=== PATIENT | female | born 1960 | race Caucasian/White ===

== ENCOUNTER → 2021-07-01 | Outpatient (CLI) | payer BC, SELFPAY ==
[2021-07-08 12:27] LABS: HPV APTIMA, High Risk Negative (Negative)
== END | disposition home or self-care (01) ==
PROVIDERS: PCP Family Medicine; Visit Provider Obstetrics & Gynecology
DX: Z01.419 Encounter for gynecological examination (general) (routine) without abnormal findings (principal)
CPT/HCPCS: 87624; 88175; G0145

== ENCOUNTER → 2022-02-26 | Outpatient (CLI) | payer BC, SELFPAY ==
--- NOTE | 2022-02-26 10:37 | MRI_ITS ---
STUDY: MRI BRAIN WITH AND WITHOUT CONTRAST REASON FOR EXAM: Female, 61 years old. BILAT HEARING LOSS, CRANIAL NERVE DISORDER TECHNIQUE: Standardized multiplanar fat and water weighted pulse sequences were obtained. IV 15ml Dotarem was administered for the contrast portion of the examination. COMPARISON: None. FINDINGS: Normal size of the ventricles and extra-axial spaces for the patient''s age. Normal white matter tracts of the supratentorial brain. Normal bilateral basal ganglia. Normal thalami. There is no extra-axial fluid accumulation. Normal flow voids within the major intracranial circulation suggesting patency by spin echo criteria. Normal venous enhancement. There is no enhancing intra-axial or extra-axial abnormality. Empty sella deformity. Normal infundibular stalk, optic chiasm and hypothalamus. Normal tectal plate and pineal gland. Normal midbrain, isabel and medulla. Normal cerebellum. Normal basal cisterns. Normal bilateral temporal bones. Normal bilateral internal auditory canals. No demonstrated orbital abnormality, within the constraints of a routine brain study. Minor mucosal thickening in the left maxillary and bilateral ethmoid sinuses Normal calvarium and skull base. Normal visualized soft tissue structures. Normal visualized upper cervical spine. MRI/Brain W/WO Contrast IMPRESSION: Empty sella deformity of uncertain clinical significance. No other significant abnormalities. No evidence for acoustic or vestibular swan normal Electronically Signed: Iraj Hoover MD at 16:31 EDT ,
[2022-02-26 11:06] LABS: CREATININE FINGERSTICK < 0.9 mg/dL (0.55-1.02); EGFR FINGERSTICK > 60.0000 mL/min (>60)
== END | disposition home or self-care (01) ==
PROVIDERS: PCP Family Medicine; Referring Provider Otolaryngology Otolaryngic Allergy; Visit Provider Otolaryngology Otolaryngic Allergy
DX: H91.93 Unspecified hearing loss, bilateral (principal); G52.9 Cranial nerve disorder, unspecified
CPT/HCPCS: 70553; A9575

== ENCOUNTER 2022-12-10 08:34 | Day surgery (SDC) | payer BC, SELFPAY ==
[2022-12-10] VITALS (7 sets, daily range): BP systolic 88–125; BP diastolic 56–67; PULSE 63–68; RESP 16–18; TEMP 36.6–36.9; O2SAT 95–98; BMI 32.8
--- NOTE | 2022-12-10 08:49 | PCM.HP.BLA ---
History and Physical Date of Admission: 12/10/22 62 F who presents to the office today to establish with GI for heartburn, pain with swallowing.? Symptoms began about a year ago.? Her mother has a history of esophageal issues including candidiasis and strictures.? Patient notes intermittent heartburn, can be triggered by certain foods so she watches what she eats.? She takes omeprazole as needed, she was not sure if she should take something on a regular basis.? She does get pain in the esophagus when swallowing.? Food has not gotten stuck.? No nausea, vomiting.? No early satiety.? Weight is stable.? No abdominal pain.? She does not have any bowel complaints.? No diarrhea, constipation, melena, hematochezia. Past medical history: Anxiety, depression, hearing loss, hypertension Past surgical history: Cholecystectomy ROS Const Constitutional: No fatigue ENT ENT: Positive for difficulty swallowing Gastro GI: Positive for bloating, difficulty swallowing, excessive flatus, nausea/dyspepsia and vomiting; No abdominal pain, belching, change in bowel habits, change in stool character, coffee ground emesis, constipation, cramping, diarrhea, heartburn, feeling full early, incontinent of stools, Vomiting blood/hematemesis, Blood in stool, loose stools, Black,tarry stools, pain with swallowing or other Musc Musculoskeletal: Positive for back pain, numbness and tingling; No joint pain Skin Skin: No yellowing of the eye or itchy eyes Neuro Neurology: Positive for numbness and tingling Psych Psychiatric: Positive for anxiety and No depression Endo Endocrine: No fatigue Aller/Imm Allergy/Immunologic: No itchy eyes Jesse/Lymp Hematologic/Lymphatic: No easy bleeding or easy bruising Exam Const General: cooperative and comfortable Orientation: alert, awake and oriented x3 HENMT Head: normal to inspection Neck Neck: normal visual inspection Resp Effort & Inspection: normal respiratory effort GI Inspection: normal to inspection Palpation: soft, no hepatosplenomegaly, no masses and nontender Skin General: no rashes or lesions noted Quality Reporting Tobacco Screening ([facility] 138) Smoking Status: Current some day smoker Assessment and Plan Assessment and Plan (1) Difficulty swallowing: ?Status:?Chronic ?Plan: 62-year-old female with approximately 1 year history of heartburn and esophageal pain with swallowing.? EGD is scheduled to evaluate for esophagitis, strictures, Townsend's, or other.? Follow-up in office 2 weeks later to discuss biopsy results.? Prescription for pantoprazole 40 mg daily. (2) Heartburn: ?Status:?Chronic ?Plan: See above ? ? ? Medications: New pantoprazole 40 mg? PO DAILY 90 tabs 0RF ? ? there have been no changes since the patient was seen and office. This is an updated history and physical.
--- NOTE | 2022-12-10 09:00 | EGD_PTH ---
PATIENT: LOKESH DE LEON LOC: EN U#:[id number] AGE/SX: 62/F ROOM: RE12/10/[address]: Dr. Raul Salgado DO : 1960 BED: DIS: 12/10/2022 SPEC #: [id number] RECD: 12/10/22 12:45 STATUS: MAGGIE REQ #: [id number] SOLO: 12/10/22 09:[address]: Raul Salgado DEPT: SURGICAL PATHOLOGY RECD BY: Kayla Alejandro ENTERED: 12/10/22 13:29 SP TYPE: EGD BIOPSY OT DR: Dr. Twin Walker MD Tissues: Esophagus, NOS Procedures: Special Stain Group II Surgery Specimen Level IV Alcian Blue/PAS (control) HEADER [place] [place] DIAGNOSIS: Difficulty swallowing TISSUE SUBMITTED: Distal esophagus MICROSCOPIC DIAGNOSIS Distal esophagus, biopsy: Gastroesophageal junctional mucosa with chronic inflammation. Focal changes of reflux. No evidence of goblet cell metaplasia. See comment. AM:lisette 12/11/2022 COMMENT Alcian blue/PAS stain with matched control supports the above diagnosis. MICROSCOPIC DESCRIPTION Slides are reviewed. GROSS DESCRIPTION Received in fixative is one container labeled with the patient's name and designated distal esophagus. The specimen consists of multiple irregular fragments of light abad soft tissue that in aggregate measure 1.0 x 0.5 x 0.1 cm. The specimen is totally submitted in one cassette. / SJ:lisette 12/10/2022 TC:3 CPT: 72833, 39948
[2022-12-10] MEDS: Lactated Ringers 1,000 ML 15 ML IV (09:03)
--- NOTE | 2022-12-10 09:55 | OP.CCLET_ITS ---
12/10/2022 Twin Walker Re : Upper GI endoscopy procedure for Romina Littlejohn Dear Aaron This procedure was performed on November. My impressions and recommendations are as follows: Impressions : - Moderate Schatzki ring. Biopsied. - Possible small varices - Medium-sized hiatal hernia. - Erythematous mucosa in the stomach. - Normal second portion of the duodenum. Biopsied. Recommendations : - Discharge patient to home. - Resume regular diet. - Continue present medications. - Ultrasound and FibroScan of the liver My findings are described in the full procedure note, which is enclosed. If I can be of further assistance, please feel free to contact me at . Sincerely, Raul Salgado, 12/10/2022 9:54:53 AM This report has been signed electronically.
--- NOTE | 2022-12-10 09:55 | OP.EGD_ITS ---
Patient Name: Romina Littlejohn Procedure Date: 12/10/2022 9:29 AM Date of : 1960 Age: 62 Procedure: Upper GI endoscopy Indications: Dysphagia, Heartburn Providers: Raul Salgado DO Referring MD: Raul Salgado DO Medicines: Monitored Anesthesia Care Patient Profile: This is a 62 year old female. Refer to note in patient chart for documentation of history and physical. Patient has symptoms of dysphagia with solids. Complications: No immediate complications. Procedure: Pre-Anesthesia Assessment: - Prior to the procedure, a History and Physical was performed, and patient medications and allergies were reviewed. The patient is competent. The risks and benefits of the procedure and the sedation options and risks were discussed with the patient. All questions were answered and informed consent was obtained. Patient identification and proposed procedure were verified by the physician in the pre-procedure area. Mental Status Examination: alert and oriented. Airway Examination: normal oropharyngeal airway and neck mobility. Respiratory Examination: clear to auscultation. CV Examination: normal. Prophylactic Antibiotics: The patient does not require prophylactic antibiotics. Prior Anticoagulants: The patient has taken no previous anticoagulant or antiplatelet agents. ASA Grade Assessment: II - A patient with mild systemic disease. After reviewing the risks and benefits, the patient was deemed in satisfactory condition to undergo the procedure. The anesthesia plan was to use monitored anesthesia care (MAC). Immediately prior to administration of medications, the patient was re-assessed for adequacy to receive sedatives. The heart rate, respiratory rate, oxygen saturations, blood pressure, adequacy of pulmonary ventilation, and response to care were monitored throughout the procedure. The physical status of the patient was re-assessed after the procedure. After obtaining informed consent, the endoscope was passed under direct vision. Throughout the procedure, the patient's blood pressure, pulse, and oxygen saturations were monitored continuously. The gastroscope was introduced through the mouth, and advanced to the second part of duodenum. The upper GI endoscopy was accomplished without difficulty. The patient tolerated the procedure well. Scope In: 9:40:01 AM Scope Out: 9:46:18 AM Total Procedure Duration Time 0 hours 6 minutes 17 seconds Findings: A moderate Schatzki ring was found at the gastroesophageal junction. Biopsies were taken with a cold forceps for histology. Verification of patient identification for the specimen was done. Estimated blood loss was minimal. A medium-sized hiatal hernia was present. Patchy mildly erythematous mucosa without bleeding was found in the stomach. The second portion of the duodenum was normal. Biopsies were taken with a cold forceps for histology. Verification of patient identification for the specimen was done. Estimated blood loss was minimal. Impression: - Moderate Schatzki ring. Biopsied. - Possible small varices - Medium-sized hiatal hernia. - Erythematous mucosa in the stomach. - Normal second portion of the duodenum. Biopsied. Recommendation: - Discharge patient to home. - Resume regular diet. - Continue present medications. - Ultrasound and FibroScan of the liver Procedure Code(s): --- Professional --- 28432, Esophagogastroduodenoscopy, flexible, transoral; with biopsy, single or multiple CPT copyright 2017 [employer] [place] [employer]. All rights reserved. The codes documented in this report are preliminary and upon income tax consultant review may be revised to meet current compliance requirements. Raul Salgado DO 12/10/2022 9:54:53 AM This report has been signed electronically. Number of Addenda: 0 Note Initiated On: 12/10/2022 9:29 AM
== END 2022-12-10 10:51 | disposition home or self-care (01) ==
LOC: EN 08:35 → AC 08:38
PROVIDERS: PCP Family Medicine; Referring Provider Family Medicine; Visit Provider Internal Medicine Gastroenterology
PROC: 0DJ08ZZ Inspection of Upper Intestinal Tract, Via Natural or Artificial Opening Endoscopic (ICD-10-PCS; CPT 43235; principal; 2022-12-10 08:55)
DX: K21.00 Gastro-esophageal reflux disease with esophagitis, without bleeding (principal); K44.9 Diaphragmatic hernia without obstruction or gangrene; F17.200 Nicotine dependence, unspecified, uncomplicated; I10 Essential (primary) hypertension; K22.2 Esophageal obstruction; Z79.899 Other long term (current) drug therapy; Z90.49 Acquired absence of other specified parts of digestive tract
CPT/HCPCS: 43239; 88305; 88313; J7120

== ENCOUNTER → 2022-12-21 | Outpatient (CLI) | payer BC, SELFPAY ==
--- NOTE | 2022-12-21 09:59 | US_ITS ---
STUDY: ABDOMINAL ULTRASOUND - ELASTOGRAPHY REASON FOR VISIT: Female, 62 years old. JUNIOR TECHNIQUE: Liver stiffness measurements were obtained on a [employer] RS 85 ultrasound machine using a CA 1-7 probe following the SRU guidelines. 3 measurements were obtained using a 2-D-SWE method. TheIQR/M was 17 % suggesting a quality data set. TECHNICAL QUALITY: Adequate. COMPARISON: None. FINDINGS: Liver: There is no demonstrated mass lesion. Median liver stiffness measured 8.1 kPa. Abdomen: There is no demonstrated mass lesion. US/ABD Limited w/ Elastography IMPRESSION: Liver stiffness measures 8.1 kPa compatible with F2-F3 (Mild to moderate liver fibrosis) Metavir score. Electronically Signed: Kadeem Fall MD at 8:36 EDT ,
== END | disposition home or self-care (01) ==
LOC: US 09:55
PROVIDERS: PCP Family Medicine; Referring Provider Internal Medicine Gastroenterology; Visit Provider Internal Medicine Gastroenterology
DX: K75.81 Nonalcoholic steatohepatitis (NASH) (principal)
CPT/HCPCS: 76705; 76981

== ENCOUNTER → 2023-01-15 | Outpatient (CLI) | payer BC, SELFPAY ==
[2023-01-15 14:22] LABS: Erythrocyte Sedimentation Rate 11 mm/hr (0-30)
[2023-01-15 14:24] LABS: Absolute Lymphocyte Count 2.22 X10^3/uL (0.83-4.51); Absolute Neutrophil Count 4.2 X10^3/uL (2.0-7.7); Basophil# 0.06 X10^3/uL; Basophil% 0.8 % (0-1); Eosinophils% 2.8 % (0-5); Hematocrit 41.2 % (37-47); Hemoglobin 13.7 g/dL (12.0-15.0); Lymphocyte # 2.22 X10^3/ul (0.83-4.51); Lymphocyte % 31.1 % (19-41); Mean Corp Hgb Conc 33.3 g/dL (32-36); Mean Corpuscular Volume 87.1 fL (81-99); Mean Platelet Vol. 8.8 fl (6.2-12.0); Monocyte# 0.43 X10^3/uL; NRBC Flagged by Analyzer 0 % (0-5); Neutrophil # 4.22 X10^3/uL (2.7-7.7); Neutrophil % 59.2 % (47-70); Platelet Count 322 K/mm3 (150-450); RBC Distribution Width CV 12.7 % (11.6-14.6); RBC Distribution Width SD 40.5 fl (35.1-43.9); Red Blood Count 4.73 M/mm3 (4.2-5.4); White Blood Count 7.1 K/mm3 (4.4-11.0)
[2023-01-15 14:35] LABS: International Normalized Ratio 0.9; Prothrombin Time (Protime)PT. 12.3 SECONDS (11.7-14.9)
[2023-01-15 14:51] LABS: ALB/GLOB Ratio 1.1 RATIO (0.9-2.4); AST(SGOT) 22 U/L (15-37); Alanine Aminotransfer ALT/SGPT 28 U/L (13-56); Albumin, Serum 3.9 g/dL (3.2-5.0); Alkaline Phosphatase 84 U/L (45-117); Anion Gap 9 (5-15); BUN 21 mg/dL (7-18); BUN/Creat Ratio 21.1 RATIO (10-20); CRP < 2.90 mg/L (0.0-3.0); Calcium,Total 9.2 mg/dL (8.5-10.1); Chloride 104 mmol/L (98-107); EST Glomerular Filtration Rate 60 mL/min (>60); Est Glom Filt Rate - Afr Amer 73 mL/min (>60); Ferritin 60 ng/mL (8-252); Globulin 3.6 g/dL (2.2-4.2); Glucose 134 mg/dL (74-106); LDH 210 U/L (84-246); Potassium 3.9 mmol/L (3.5-5.1); Protein, Total 7.5 g/dL (6.4-8.2); Sodium Level 138 mmol/L (136-145)
[2023-01-15 14:57] LABS: Hemoglobin A1c 6.1 % (3.8-5.6)
[2023-01-15 15:12] LABS: HIV - WCH Non-Reactive (Nonreactive)
[2023-01-19 14:09] LABS: Anti-Centromere B Ab <0.2 AI (0.0-0.9); Anti-Chromatin <0.2 AI (0.0-0.9); Anti-Jo <0.2 AI (0.0-0.9); Anti-Mitochondrial AB <20.0 Units (0.0-20.0); Anti-Scleroderma-70 AB <0.2 AI (0.0-0.9); Anti-dsDNA Ab 1 IU/mL (0-9); RNP Ab <0.2 AI (0.0-0.9); SJOGREN'S Anti-SS-A test < 0.2 AI (0.0-0.9); SJOGREN'S Anti-SS-B test < 0.2 AI (0.0-0.9); Smith Ab <0.2 AI (0.0-0.9)
[2023-01-19 18:07] LABS: AFP, Tumor Marker 5.2 ng/mL (0.0-9.2); Angiotensin Convert Enzyme 19 U/L (14-82); Anti-Smooth Muscle ABS 15 Units (0-19); Ceruloplasmin 24.4 mg/dL (19.0-39.0); Copper, Serum or Plasma 110 ug/dL (80-158); Cytoplasmic Ab (C-ANCA) <1:20 titer (Neg:<1:20); HEPATITIS B SURFACE AG Negative (Negative); Haptoglobin 54 mg/dL (37-355); Hep C Antibodies Non Reactive (Non Reactive); Hepatitis A IgM Antibody Negative (Negative); Hepatitis B Core AB IgM Negative (Negative); Perinuclear Ab (P-ANCA) <1:20 titer (Neg:<1:20)
== END | disposition home or self-care (01) ==
LOC: LAB 13:49
PROVIDERS: PCP Family Medicine; Visit Provider Nurse Practitioner Adult Health
DX: K75.81 Nonalcoholic steatohepatitis (NASH) (principal)
CPT/HCPCS: 36415; 80053; 80074; 82105; 82140; 82164; 82390; 82525; 82728; 83010; 83036; 83516; 83615; 85025; 85610; 85652; 86140; 86225; 86235; 86256; 86703

== ENCOUNTER → 2023-02-09 | Outpatient (CLI) | payer BC, SELFPAY ==
--- NOTE | 2023-02-09 17:45 | CT_ITS ---
EXAM: CT ANGIOGRAPHY NECK WITHOUT AND WITH INTRAVENOUS CONTRAST CLINICAL INDICATION: esophageal varicies TECHNIQUE: Routine carotid CT angiography protocol was performed without and with intravenous contrast. NASCET criteria using the distal ICAs for comparison were used for evaluation of stenoses. This CT exam was performed using one or more of the following dose reduction techniques: automated exposure control, adjustment of the mA and/or kV according to patient size, and/or use of iterative reconstruction technique. MIP reconstructed images were created and reviewed. CONTRAST: IV 100mL Isovue-370 COMPARISON: No relevant prior studies available. FINDINGS: VASCULATURE: RIGHT COMMON CAROTID ARTERY: Unremarkable. No occlusion or significant stenosis. No dissection. RIGHT INTERNAL CAROTID ARTERY: Unremarkable. Extracranial segment is patent with no occlusion or significant stenosis. No dissection. RIGHT EXTERNAL CAROTID ARTERY: Unremarkable. No occlusion. RIGHT VERTEBRAL ARTERY: Unremarkable. No occlusion or significant stenosis. No dissection. LEFT COMMON CAROTID ARTERY: Unremarkable. No occlusion or significant stenosis. No dissection. LEFT INTERNAL CAROTID ARTERY: Unremarkable. Extracranial segment is patent with no occlusion or significant stenosis. No dissection. LEFT EXTERNAL CAROTID ARTERY: Unremarkable. No occlusion. LEFT VERTEBRAL ARTERY: Unremarkable. No occlusion or significant stenosis. No dissection. BRACHIOCEPHALIC AND SUBCLAVIAN ARTERIES: Unremarkable as visualized. No occlusion or significant stenosis. NECK: BONES/JOINTS: Unremarkable. SOFT TISSUES: Unremarkable. LUNG APICES: Clear. CAROTID STENOSIS REFERENCE USING NASCET CRITERIA: % ICA stenosis = (1 - narrowest ICA diameter/diameter of distal cervical ICA) x 100. Mild - <50% stenosis. Moderate - 50-69% stenosis. Severe - 70-94% stenosis. Near occlusion - 95-99% stenosis. Occluded - 100% stenosis. CT/CTA Neck W/WO Contrast IMPRESSION: Negative CTA neck. Electronically Signed: Gee Mayorga MD at 18:16 EDT ,
--- NOTE | 2023-02-09 17:45 | CT_ITS ---
EXAM: CT ANGIOGRAPHY CHEST, ABDOMEN AND PELVIS WITH INTRAVENOUS CONTRAST CLINICAL INDICATION: esophageal varices TECHNIQUE: Helically acquired angiography images were obtained of the chest, abdomen and pelvis with intravenous contrast. This CT exam was performed using one or more of the following dose reduction techniques: automated exposure control, adjustment of the mA and/or kV according to patient size, and/or use of iterative reconstruction technique. MIP reconstructed images were created and reviewed. CONTRAST: IV 100mL Isovue-370 COMPARISON: No relevant prior studies available. FINDINGS: VASCULATURE: AORTA: No acute findings. Normal in caliber. No dissection. PULMONARY ARTERIES: Unremarkable. Normal in caliber. No obvious central pulmonary embolism although this study was not performed with the pulmonary embolism protocol. GREAT VESSELS OF AORTIC ARCH: Unremarkable. Normal in caliber. No dissection. CELIAC TRUNK AND MESENTERIC ARTERIES: No acute findings. No occlusion or significant stenosis. No dissection. RENAL ARTERIES: No acute findings. No occlusion or significant stenosis. No dissection. ILIAC ARTERIES: No acute findings. No occlusion or significant stenosis. No dissection. CHEST: LUNGS AND PLEURAL SPACES: Unremarkable. No mass. No consolidation or edema. No pleural effusion or thickening. No pneumothorax. HEART: Unremarkable. Heart size is normal. No pericardial effusion. MEDIASTINUM: Unremarkable. No mediastinal or hilar adenopathy. Esophagus is unremarkable. No hiatal hernia. THYROID: Unremarkable. No thyroid lesions. ABDOMEN: LIVER: Unremarkable. Homogeneous. No focal mass. GALLBLADDER AND BILE DUCTS: There are surgical clips from a cholecystectomy. No intra- or extrahepatic biliary ductal dilation. PANCREAS: Unremarkable. No focal cystic or solid mass. SPLEEN: Unremarkable. Normal size without focal cystic or solid mass. ADRENALS: Unremarkable. No nodules. KIDNEYS AND URETERS: Unremarkable. Normal renal size and position. No hydronephrosis. STOMACH AND BOWEL: Unremarkable. No stomach or bowel distention. No focal inflammatory change. PELVIS: APPENDIX: No evidence of acute appendicitis. BLADDER: Unremarkable. REPRODUCTIVE: Unremarkable as visualized. No mass. CHEST, ABDOMEN and PELVIS: INTRAPERITONEAL SPACE: Unremarkable. No ascites or other fluid collection. No free air. BONES/JOINTS: Unremarkable. No suspicious lytic or blastic abnormality. SOFT TISSUES: Unremarkable. No discrete abdominal or pelvic wall hernia. LYMPH NODES: Unremarkable. No enlarged lymph nodes. CT/CTA Chst, Abd, Pel W and/or WO IMPRESSION: No acute findings in the visualized arteries of the chest, abdomen or pelvis. Electronically Signed: Gee Mayorga MD at 18:15 EDT ,
== END | disposition home or self-care (01) ==
LOC: CT 17:44
PROVIDERS: PCP Family Medicine; Referring Provider Nurse Practitioner Adult Health; Visit Provider Nurse Practitioner Adult Health
DX: I85.00 Esophageal varices without bleeding (principal)
CPT/HCPCS: 70498; 71275; 74174; Q9967